=== PATIENT | female | born 1990 | race Two or more races ===

== ENCOUNTER 2022-12-04 17:01 | Emergency (ER) | payer BC ==
[~2022-12-04] VITALS: Ht 162.6 cm; Wt 55.3 kg
[2022-12-04] MEDS ORDERED: CYCLOBENZAPRINE 10 MG TABLET ONE (18:20)
[2022-12-04] MEDS ORDERED: KETOROLAC TROMETHAMINE INJ 30 MG/ML VIAL ONE (18:20)
[2022-12-04] MEDS ORDERED: CYCLOBENZAPRINE 10 MG TABLET PO ONE (18:30)
--- NOTE | 2022-12-04 18:30 | NUR ---
PT IN RADIOLOGY FOR XRAY
--- NOTE | 2022-12-04 18:55 | NUR ---
PT RETURNED FROM RADIOLOGY
[2022-12-04] MEDS: KETOROLAC TROMETHAMINE INJ 60 MG/2 ML VIAL IM ONE ×2 (19:11→19:12)
[2022-12-04] MEDS ORDERED: CYCL10TA9 PO (19:22)
[2022-12-04] MEDS ORDERED: NAPR500T6 PO (19:22)
[2022-12-04 19:30] VITALS: BP 127/74
--- NOTE | 2022-12-04 19:30 | NUR ---
Patient discharged to home in stable condition. Written and verbal after care instructions given. Patient verbalizes understanding of instruction.
== END 2022-12-04 19:30 | disposition home or self-care (01) ==
LOC: ER 17:07
DX: S16.1XXA Strain of muscle, fascia and tendon at neck level, initial encounter (principal); S39.012A Strain of muscle, fascia and tendon of lower back, initial encounter; Z91.010 Allergy to peanuts; Z91.018 Allergy to other foods; Z79.899 Other long term (current) drug therapy; V43.52XA Car driver injured in collision with other type car in traffic accident, initial encounter; Y93.89 Activity, other specified; Y92.89 Other specified places as the place of occurrence of the external cause; Y99.8 Other external cause status
CPT/HCPCS: 99284; 96372; 72050; 72100; 72074; J1885